=== PATIENT | male | born 2000 | race Caucasian/White ===

== ENCOUNTER 2019-09-04 13:09 | Emergency (ER) | payer BC, SELFPAY ==
[2019-09-04 13:12] VITALS: BP 142/87; PULSE 66; RESP 20; TEMP 36.6; O2SAT 99
--- NOTE | 2019-09-04 13:46 | ED.GENADUL_ITS ---
Discharge Plan Disposition Patient Disposition: HOME Condition: Stable Discharge Details Chief Complaint: Nk/Back Pain Clinical Impression: Right sided sciatica Primary Care Provider: None,None ED Provider: Juanjose Christie Home Meds and New Rx's Prescriptions: New prednisone 20 mg tablet 40 mg PO DAILY 5 Days Qty: 10 RF: 0 Discharge Instructions Instructions: Sciatica (ED) Additional Instructions: Apply ice and/or heat to area to reduce discomfort Take prednisone as prescribed. May continue the use of ibuprofen and/or Tylenol if needed for discomfort. Return to the ER if you have increasing pain, develop numbness or weakness of the lower extremity, change to urination, or any other acute concerns. Medical Decision Making 19-year-old male with a history of sciatica presents for recurrent right buttock pain that radiates down his leg. Worsened after traveling back to his local college. No motor or sensory dysfunction, reflexes are intact and symmetric. Consistent with acute right-sided sciatica. Will treat with a burst of prednisone, ongoing analgesia, patient states he has pre-standing plans for physical therapy follow- up. Discussed with him return precautions to the ED. HPI General Mode of arrival: ambulatory . Date/Time Provider Initiated Documentation: 09/04/19 13:36 . Limitations to Documentation: no limitations . Information obtained by: patient . History of Present Illness 19 year old M presents to the emergency department with the chief complaint of Right buttock and leg pain, described as similar to prior episodes, Quality is described as constant, and is localized to the right and lower extremity. Patient reports no radiation. Patient started experiencing this day(s) and it has been constant. Rest improves symptom(s), Other factors that worsen symptoms (Worse with prolonged sitting) . Patient notes other (No change to bowel or bladder habits, no numbness or tingling, no weakness.). Patient did receive the following treatments prior to arrival, NSAID Related Data Home Medications Medication Instructions Recorded Confirmed prednisone 40 mg PO DAILY 5 Days #10 tab 09/04/19 Previous Rx's Medication Instructions Recorded prednisone 40 mg PO DAILY 5 Days #10 tab 09/04/19 Allergies Allergy/AdvReac Type Severity Reaction Status Date / Time No Known Allergies Allergy Unverified 09/04/19 13:16 General Stated Complaint: Nk/Back Pain AMARILIS: 4 Review of Systems Narrative: 6 systems reviewed and otherwise negative, see HPI PFS Social History Smoking/Tobacco Use Status: Current every day Substance use type: marijuana Do you feel safe at home: Yes Do you feel safe in your relationship?: Yes Exam Narrative Exam Narrative: GEN: awake, alert, oriented 3. Pleasant, well groomed, interactive. HEAD: Normocephalic, atraumatic ENT: Mucous membranes moist, oropharynx unremarkable, External ear exam unremarkable EYES: PERRL, EOMI NECK: Full ROM, no CARIN, no menigismus CHEST/RESP: Nontender, clear to auscultation bilateral, no wheeze/rhonchi/rales CARDIOVASCULAR: RRR, no murmur, rub kanu. 2+ Rad pulse bilateral EXT: Full ROM, no edema, no rash. No saddle anesthesia. Motor 5 out of 5. 2+ patellar reflex bilaterally. Great toe proprioception intact. Sensation intact throughout Neuro: Grossly normal neurologic exam, conversant, interactive. Psych: Speech fluent, thoughts congruent, affect normal Course Vital Signs Vital signs: Vital Signs Temperature 36.6 C 09/04/19 13:12 Pulse 66 09/04/19 13:12 Respiratory Rate 20 09/04/19 13:12 Blood Pressure 142/87 H 09/04/19 13:12 Pulse Oximetry 99 09/04/19 13:12 Temperature 36.6 C 09/04/19 13:12 Temperature Source Skin 09/04/19 13:12 Pulse 66 09/04/19 13:12 Respiratory Rate 20 09/04/19 13:12 Respiratory Effort 09/04/19 13:16 Blood Pressure 142/87 H 09/04/19 13:12 Blood Pressure Position Sitting 09/04/19 13:12 Pulse Oximetry 99 09/04/19 13:12 Oxygen Delivery Method Room Air 09/04/19 13:12 Oxygen Flow Rate 0 09/04/19 13:12 Pain Level 8 09/04/19 13:12
[2019-09-04] MEDS: predniSONE 20 MG TAB 60 MG PO (14:01)
== END 2019-09-04 14:08 | disposition home or self-care (01) ==
LOC: ER 14:04
PROVIDERS: Emergency Provider Emergency Medicine
DX: M54.41 Lumbago with sciatica, right side (principal)
CPT/HCPCS: 99283; J7512

== ENCOUNTER 2022-02-01 10:46 | Emergency (ER) | payer BC, SELFPAY ==
[2022-02-01 10:56] VITALS: BP 146/78; PULSE 76; RESP 16; TEMP 37.4; O2SAT 97
--- NOTE | 2022-02-01 11:37 | ED.GENADUL_ITS ---
Discharge Plan Disposition Patient Disposition: HOME Condition: Stable Discharge Details Clinical Impression: Cough Primary Care Provider: None,None ED Provider: Tito Bucio Home Meds and New Rx's Prescriptions: Continued Cary .EVERY OTHER WEEK 0RF Discharge Instructions Instructions: Acute Cough (ED) Additional Instructions: Chest x-ray is negative. No clear indication for antibiotic therapy. Covid test is pending, I recommend that you quarantine until the test has resulted negative hopefully in the next 2 days. Please stop vaping. Ukui-zeb-[id number] medications as directed for symptomatic control. Please watch for new or worsening symptoms and return to the ER for any concerns Medical Decision Making 22-year-old gentleman, vapes daily, reports fully vaccinated against COVID with his booster, reports having had Covid roughly 5 weeks ago, full recovery, now with cough over the past 7 days. Reports primarily dry, occasional wheezing, denies any sick contacts. He has taken 2 - home Covid test over the past few days. Clinically he appears well, nontoxic, O2 sat 97% on room air. Lungs are clear to auscultation. Plan is to obtain a chest x-ray to rule out pneumonia as well as a Covid PCR swab. No indication for additional laboratory values or breathing treatment. Chest x-ray negative Discussed benign chest x-ray with patient, Covid test pending and quarantining until it has resulted negative. We discussed the importance of qsel-yse-[id number] medications for symptomatic control. Patient has no additional questions or concerns and is comfortable discharge. Standard discharge and return precautions were provided This documentation was generated using [employer] dictation system, please disregard any oddities of phrase or misspellings. Medical Records Medical records reviewed: Yes I reviewed the patient's medical records. Imaging Data Radiologic Study: Attestation: I personally reviewed and interpreted this imaging study as follows: Imaging: X-Ray Radiologist's impression: Exam(s) XR PORTABLE CHEST AP EXAM: XR PORTABLE CHEST AP CLINICAL HISTORY: cough TECHNIQUE: 2D digital imaging was performed of the chest. One image was obtained. An AP view was obtained. COMPARISON: No exams were available for comparison FINDINGS: MEDIASTINUM: Normal. HEART: Normal. PULMONARY VASCULATURE: Normal. LUNGS: Mild peribronchial thickening seen in the left hilum. PLEURAL SPACE: No pleural effusion or pneumothorax. BONE:Within normal limits for the patient's age. OTHER FINDINGS:Normal. IMPRESSION: Mild peribronchial cuffing in the left hilum. This may reflect small airways disease such as bronchiolitis or asthma. Lab Data Labs: covid pending HPI General Mode of arrival: ambulatory . Date/Time Provider Initiated Documentation: 02/01/22 11:01 . Limitations to Documentation: no limitations . Information obtained by: patient . History of Present Illness 22 year old M presents to the emergency department with the chief complaint of cough, described as mild, with intensity rated at 3. Quality is described as other (cough, no pain), and is localized to the chest. Patient reports no radiation. Patient started experiencing this day(s) (7) and it has been constant. improves with No relieving factors improve symptom(s), No exacerbating factors reported . Patient notes cough; denies fever/chills, headaches, nausea/vomiting and rash. Patient did receive the following treatments prior to arrival, none Related Data Home Medications Medication Instructions Recorded Confirmed Cary .EVERY OTHER WEEK 02/01/22 Allergies Allergy/AdvReac Type Severity Reaction Status Date / Time No Known Allergies Allergy Unverified 02/01/22 11:01 General Stated Complaint: RespSymp AMARILIS: 4 Review of Systems Constitutional Constitutional: Denies fever(s) Cardiovascular Cardiovascular: Denies chest pain and Denies dyspnea Respiratory Respiratory: Reports cough, Denies dyspnea and Reports wheezing (at times, none now) Gastrointestinal Gastrointestinal: Denies abdominal pain, Denies nausea and Denies vomiting Integumentary/Breasts Skin/Breast: Denies rash Allergic/Immunologic Allergic/Immunologic: Reports wheezing (at times, none now) PFSH All Active Problems (Updated 02/01/22 @ 12:12 by ALEXSANDER Rajan) Cough (Acute) Social History Smoking/Tobacco Use Status: Current every day Tobacco Type: e-cigarettes Smoking risk assessment performed?: Yes Substance use type: former substance user and marijuana Do you feel safe at home: Yes Do you feel safe in your relationship?: Yes Exam Const General: cooperative, healthy appearing, comfortable and no acute distress Orientation: alert and awake HENMT Head: normal to inspection, normocephalic and atraumatic Ears: external ears normal, TM's normal bilaterally and EAC's normal Face and sinus: normal facial exam Mouth: moist mucous membranes Throat: posterior oropharynx normal Eyes General: appearance normal, both eyes and all related structures Conjunctivae: conjunctivae normal Neck Neck: normal visual inspection, full ROM, no meningeal signs, trachea midline and supple Resp Effort & Inspection: normal respiratory effort, able to speak in complete sentences and cough Quality of cough: dry (mild) Auscultation: clear to auscultation bilaterally Cardio Rate: regular rate Rhythm: regular rhythm GI Palpation: soft and nontender Back/Spine/Pelvis Back: No back tenderness Skin General skin exam: no rashes or lesions noted Neuro General: patient alert, patient awake, moves all extremities and no focal motor deficits Sensory Exam: no sensory deficits noted Psych Appearance: grossly normal Mental Status: mental status grossly normal Course Vital Signs Vital signs: Vital Signs Temperature 37.4 C 02/01/22 10:56 Pulse 76 02/01/22 10:56 Respiratory Rate 16 02/01/22 10:56 Blood Pressure 146/78 H 02/01/22 10:56 Pulse Oximetry 97 02/01/22 10:56 Temperature 37.4 C 02/01/22 10:56 Temperature Source Skin 02/01/22 10:56 Pulse 76 02/01/22 10:56 Respiratory Rate 16 02/01/22 10:56 Respiratory Effort 02/01/22 11:03 Respiratory Depth Normal 02/01/22 11:03 Blood Pressure 146/78 H 02/01/22 10:56 Blood Pressure Position Sitting 02/01/22 10:56 Pulse Oximetry 97 02/01/22 10:56 Oxygen Delivery Method Room Air 02/01/22 10:56 Oxygen Flow Rate 0 02/01/22 10:56 Pain Level 2 02/01/22 10:56 Comment 02/01/22 10:56 PAWSS Have you Been Recently Intoxicated or Drunk Within the Last 30 days?: Yes Have you Ever Experienced Previous Episodes of Alcohol Withdrawal?: No Have you ever Experienced Withdrawal Seizures?: No Have you ever Experienced Delirium Tremens(DT)s?: No Have you ever undergone Alcohol Rehabilitation Treatment (i.e, inpt ot outpatient treatment programs)?: No Have you ever Experienced Blackouts?: Yes Have you ever Combined Alcohol with other Downers within the last 90 days?: No Have you ever Combined Alcohol with any other Substance of Abuse during the last 90 days?: No Positive Blood Alcohol level on Presentation? [PCS.BAL]: No Evidence of Increased Autonomic Activity (i.e. HR>120, tremor, sweating, agitation, nausea)?: No Result: 2
--- NOTE | 2022-02-01 11:48 | DI.RAD_ITS ---
Exam(s) XR PORTABLE CHEST AP EXAM: XR PORTABLE CHEST AP CLINICAL HISTORY: cough TECHNIQUE: 2D digital imaging was performed of the chest. One image was obtained. An AP view was ob tained. COMPARISON: No exams were available for comparison FINDINGS: MEDIASTINUM: Normal. HEART: Normal. PULMONARY VASCULATURE: Normal. LUNGS: Mild peribronchial thickening seen in the left hilum. PLEURAL SPACE: No pleural effusion or pneumothorax. BONE:Within normal limits for the patient's age. OTHER FINDINGS:Normal. IMPRESSION: Mild peribronchial cuffing in the left hilum. This may reflect small airways disease such as bronchi olitis or asthma. DATA REPOSITORY: RADIATION DOSE DELIVERED:
[2022-02-02 11:31] LABS: COVID-19 RT-PCR UVMMC Result Negative (Negative)
== END 2022-02-01 12:25 | disposition home or self-care (01) ==
PROVIDERS: Emergency Provider Physician Assistant
DX: R05.9 Cough, unspecified (principal); F17.290 Nicotine dependence, other tobacco product, uncomplicated; Z86.16 Personal history of COVID-19; Z20.822 Contact with and (suspected) exposure to COVID-19
CPT/HCPCS: 99283; U0003; 71045

== ENCOUNTER 2022-02-13 15:39 | Emergency (ER) | payer BC, SELFPAY ==
[2022-02-13 15:44] VITALS: BP 121/73; PULSE 82; RESP 18; TEMP 37.2; O2SAT 98
--- NOTE | 2022-02-13 15:47 | ED.GENADUL_ITS ---
Discharge Plan Disposition Patient Disposition: HOME Condition: Stable Discharge Details Clinical Impression: Chronic cough Primary Care Provider: Lucy,Local ED Provider: Mei Beltre Home Meds and New Rx's Prescriptions: New amoxicillin-pot clavulanate 875-125 mg tablet 1 tab PO BID 7 Days Qty: 14 0RF prednisone 20 mg tablet See Rx Instructions .ROUTE .COMPLEX Qty: 12 0RF Rx Instructions: Take 3 tabs daily for 2 days, then 2 tabs daily for 2 days, then 1 tab daily for 2 days benzonatate 100 mg capsule 100 mg PO TID PRN (Reason: cough) Qty: 10 0RF Continued [place] .EVERY OTHER WEEK 0RF Discharge Instructions Additional Instructions: Your COVID test today is negative. Your chest x-ray was read today as negative for acute disease. Drink plenty of fluids and get plenty of rest. You are being sent home with prescriptions for steroids, cough medication and antibiotic. Start your steroid prescription tomorrow. If you have no relief or worsening of symptoms in the next 2 days, you can try taking the antibiotics. Use the albuterol inhaler as needed and directed for shortness of breath. Take the cough medication as needed and directed for coughing. Follow-up with your primary care doctor in 1 week for reevaluation and for referral to allergy and immunology or pulmonology if your cough does not improve or worsens. Return to the emergency department with any worsening or new concerning symptoms. Referrals: Vicky Dunlap MD [ [facility] STAFF PHYSICIAN] - Washington Matias MD [ [facility] STAFF PHYSICIAN] - Discharge Data Discharge Physician: Mei Beltre Medical Decision Making 21-year-old male with a history of ankylosing spondylitis on chronic immunosuppressants presents for persistent productive cough for the past 4 weeks. Patient seen here 2 weeks ago for similar symptoms and had a chest X-ray which noted Mild peribronchial cuffing in the left hilum.? This may reflect small airways disease such as bronchiolitis or asthma.? Vitals within normal limits. Patient appears comfortable and nontoxic. He is frequently coughing throughout exam. His lungs are otherwise clear without wheezing, rhonchi or rales. Normal ENT exam. Differential diagnosis includes bronchitis, long COVID, post-COVID illness, pneumonia, allergies, GERD. History and presentation does not appear consistent with PE, dissection or ACS. We will give a DuoNeb and oral steroids for cough. Patient drove himself here so we wi ll hold on narcotic cough medication. Will obtain a COVID and repeat chest xray. COVID negative. Chest x-ray read as negative. There appeared to be possible increased markings in the right lung base. No wheezing noted on reassessment of lung exam post neb. Considering patient's complaint of productive cough, will send with a prescription for steroids, cough medication and antibiotics. Patie nt denies any significant relief with duo nebs and steroids here. We will send with Reynaldodilma with codeine. Also discussed with patient that his symptoms could be secondary to allergies or GERD. Advised to follow up with the primary care doctor for re-evaluation. Usual and customary return precautions given prior to discharge. Medical Records Medical records reviewed: Yes I reviewed the patient's medical records. Medical records narrative: 02/01/22 XR PORTABLE CHEST AP CLINICAL HISTORY:? cough TECHNIQUE:? 2D digital imaging was performed of the chest. One image was obtained.? An AP view was obtained. COMPARISON:? No exams were available for comparison FINDINGS: MEDIASTINUM: Normal.? HEART: Normal. PULMONARY VASCULATURE: Normal. LUNGS: Mild peribronchial thickening seen in the left hilum. ? PLEURAL SPACE: No pleural effusion or pneumothorax. BONE:Within normal limits for the patient's age. OTHER FINDINGS:Normal.? IMPRESSION: Mild peribronchial cuffing in the left hilum.? This may reflect small airways disease such as bronchiolitis or asthma.? Imaging Data Radiologic Study: Radiologist's impression: XR Chest Exam date and time: 02/13/2022 4:07 PM Age: 22 years old Clinical indication: Other: Cough, SOB, R/O acute disease TECHNIQUE: Imaging protocol: XR of the chest. Views: 1 view. Total images: 2 COMPARISON: CR XR PORTABLE CHEST AP 02/01/2022 11:29 AM FINDINGS: Lungs: Unremarkable. No consolidation. Pleural spaces: No pleural effusion. No pneumothorax. Heart/Mediastinum: Heart size is normal for technique. Bones/joints: No acute bone abnormality. IMPRESSION: No acute findings. Lab Data Lab results reviewed: Yes I reviewed the patient's lab results. Labs: Laboratory Tests Range/Units 02/13/22 16:20 COVID-19 Source Nasal/Nares SARS-CoV-2 (PCR) (Negative) Negative HPI General Mode of arrival: ambulatory . Date/Time Provider Initiated Documentation: 02/13/22 15:40 . Limitations to Documentation: no limitations . Information obtained by: patient . HPI Narrative: Patient is a 22-year-old male with a history of ankylosing spondylitis chronically on immunosuppressants who presents for persistent cough for the past 4 weeks. Patient states he is fully vaccinated for COVID but did contract COVID in November 2021. He states his symptoms are mainly fever and headache and denies any cough or shortness of breath at that time. He states his cough has been present for the past 4-week, productive of white and yellow sputum and associated with shortness of breath that is usually worse when laying down. He does admit to sore throat with coughing. He denies any fever, ear pain, chest pain, vomiting or diarrhea. He states he has taken doqg-zln-ukpsrpw cough medication. He was seen in the ER 2 weeks ago for the same complaint and had a chest x-ray which was negative for pneumonia. Related Data Home Medications Medication Instructions Recorded Confirmed [place] .EVERY OTHER WEEK 02/01/22 amoxicillin 875 mg-potassium 1 tab PO BID 7 Days #14 tab 02/13/22 clavulanate 125 mg tablet benzonatate 100 mg capsule 100 mg PO TID PRN #10 cap 02/13/22 prednisone 20 mg tablet See Rx Instructions .ROUTE 02/13/22 .COMPLEX #12 tab Previous Rx's Medication Instructions Recorded amoxicillin 875 mg-potassium 1 tab PO BID 7 Days #14 tab 02/13/22 clavulanate 125 mg tablet benzonatate 100 mg capsule 100 mg PO TID PRN #10 cap 02/13/22 prednisone 20 mg tablet See Rx Instructions .ROUTE 02/13/22 .COMPLEX #12 tab Allergies Allergy/AdvReac Type Severity Reaction Status Date / Time No Known Allergies Allergy Unverified 02/13/22 15:47 General Stated Complaint: RespSymp AMARILIS: 3 Review of Systems All systems reviewed & are unremarkable except as noted in HPI and below Constitutional Constitutional: Denies chills, Denies excessive sweating, Denies fatigue, Denies fever(s), Denies weakness and Denies weight loss Eyes Eyes: Reports system reviewed and no additional complaints, except as documented and Denies blurry vision ENT Ears, Nose, Mouth, and Throat: Denies vertigo, Denies dizziness, Denies otalgia, Denies nasal congestion, Denies sore throat and Denies throat swelling Cardiovascular Cardiovascular: Denies chest pain, Denies syncope, Denies rapid heart rate and Reports dyspnea Respiratory Respiratory: Reports chest congestion, Reports cough, Denies pain on inspiration and Reports dyspnea Gastrointestinal Gastrointestinal: Denies abdominal pain, Denies diarrhea and Denies vomiting Genitourinary Genitourinary: Denies hematuria, Denies dysuria and Denies flank pain Musculoskeletal Musculoskeletal: Denies back pain and Denies joint swelling Integumentary/Breasts Skin/Breast: Denies lesions and Denies rash Neurologic Neurologic: Denies behavioral changes, Denies confusion, Denies vertigo, Denies dizziness, Denies syncope, Denies localized weakness and Denies weakness Psychiatric Psychiatric: Denies behavioral changes, Denies confusion and Denies depression Endocrine Endocrine: Denies excessive sweating and Denies fatigue Hematologic/Lymphatic Hematologic/Lymphatic: Denies easy bruising and Denies lymphadenopathy Allergic/Immunologic Allergic/Immunologic: Denies throat swelling PFSH All Active Problems (Updated 02/13/22 @ 17:28 by Mei Beltre DO) Chronic cough (Acute) Cough (Acute) Medical History (Updated 02/13/22 @ 17:28 by Mei Beltre DO) Ankylosing spondylitis Surgical History (Updated 02/13/22 @ 17:18 by Mei Beltre DO) History of hip surgery bilateral Social History Smoking/Tobacco Use Status: Current every day Tobacco Type: e-cigarettes Smoking risk assessment performed?: Yes Substance use type: former substance user and marijuana Do you feel safe at home: Yes Do you feel safe in your relationship?: Yes Exam Const General: cooperative and no acute distress Orientation: alert, awake and oriented x3 HENMT Head: normal to inspection Ears: hearing grossly normal bilaterally, external ears normal and TM's normal bilaterally General nose exam: external nose normal Face and sinus: normal facial exam Mouth: oral mucosae normal Teeth and gingiva: dentition normal Throat: posterior oropharynx normal Eyes General: appearance normal, both eyes and all related structures Eyelids: eyelids normal Pupils: PERRL EOM: EOM intact bilaterally Neck Neck: normal visual inspection Lymphatic: no lymphadenopathy noted Chest Chest: normal inspection of the chest Resp Effort & Inspection: normal respiratory effort and able to speak in complete sentences Auscultation: clear to auscultation bilaterally Cardio Rate: regular rate Rhythm: regular rhythm GI Inspection: normal to inspection Palpation: soft, not firm, no guarding, no hepatosplenomegaly, no masses and nontender Auscultation: normal bowel sounds Back/Spine/Pelvis Back: no CVA tenderness Skin General skin exam: no rashes or lesions noted Neuro General: patient alert and patient awake Cognition: normal cognition Speech: speech normal Gait: normal gait Motor: muscle tone normal throughout Sensory Exam: no sensory deficits noted Extrem General: normal to inspection, full ROM and capillary refill normal Psych Appearance: grossly normal Mental Status: mental status grossly normal Speech and Movement: speech and movement normal Affect: normal affect Thought Process: normal Course Vital Signs Vital signs: Vital Signs Temperature 99.0 F 02/13/22 15:44 Pulse 82 02/13/22 15:44 Respiratory Rate 18 02/13/22 15:44 Blood Pressure 121/73 02/13/22 15:44 Pulse Oximetry 98 02/13/22 15:44 Temperature 99.0 F 02/13/22 15:44 Temperature Source Temporal Artery Scan 02/13/22 15:44 Pulse 82 02/13/22 15:44 Respiratory Rate 18 02/13/22 15:44 Blood Pressure 121/73 02/13/22 15:44 Blood Pressure Position Sitting 02/13/22 15:44 Pulse Oximetry 98 02/13/22 15:44 Oxygen Delivery Method Room Air 02/13/22 15:44 Oxygen Flow Rate 0 02/13/22 15:44
--- NOTE | 2022-02-13 16:00 | DI.RAD_ITS ---
Exam(s) XR PORTABLE CHEST AP EXAM: XR PORTABLE CHEST AP CLINICAL HISTORY: cough, sob, r/o acute disease TECHNIQUE: 2D digital imaging was performed of the chest. Two images were obtained. AP views were obtained. COMPARISON: No exams were available for comparison FINDINGS: MEDIASTINUM: Normal. HEART: Normal. PULMONARY VASCULATURE: Normal. LUNGS: Clear. PLEURAL SPACE: No pleural effusion or pneumothorax. BONE:Within normal limits for the patient's age. OTHER FINDINGS:Normal. IMPRESSION: No acute pulmonary findings. DATA REPOSITORY: RADIATION DOSE DELIVERED:
--- OUTSIDE RECORDS SUMMARY | 2022-02-13 16:07 | XMS_ITS | Clinical Summary ---
:2000 Author Organization [facility] Address [phone] [facility] [place] [address] Care Team Providers Name Role Phone CharmaineerKareem MD Primary Care Provider Allergies No known active allergies Medications No known medications Active Problems Problem Noted Date Spondyloarthropathy 05/06/2020 Sciatica of right side 05/05/2020 Immunizations Name Administration Dates Next Due DTaP, unspecified formulation 07/27/2000, 1999, 1998, 1999 Hepatitis B, unspecified formulation 1999, 1999, 1999 Hib, unspecified formulation 05/15/2000, 1999, 999, 1999 MMR 05/15/2000 Pneumococcal conjugate, PCV 7 05/15/2000, 02/08/2000 Polio, Unspecified Formulation 1999, 1999, 03/16 Varicella 02/08/2000 Social History Tobacco Use Types Packs/Day Years Used Date Never Assessed Sex Assigned at Date Recorded Male 04/27/2020 12:17 PM EDT Last Filed Vital Signs Vital Sign Reading Time Taken Comments Blood Pressure - - Pulse - - Temperature - - Respiratory Rate - - Oxygen Saturation - - Inhaled Oxygen Concentration - - Weight 81.6 kg (180 lb) 05/05/2020 8:30 AM EDT Height 177.8 cm (5' 10) 05/05/2020 8:30 AM EDT Body Mass Index 25.83 05/05/2020 8:30 AM EDT Plan of Treatment Health Maintenance Due Date Last Done Comments Adult Td,Tdap Booster 1999 COVID-19 VACCINE (1) 01/23/2004 SMOKING Hx and SMOKELESS 01/23/2012 TOBACCO SCREENING DEPRESSION SCREENING 2017 HIV ONE-TIME SCREENING 2017 (18-65 YEARS) INFLUENZA VACCINE (#1) 2021 08/02/2018, 10/05/2017, 07/19/2016, Additional history exists HIB VACCINES Completed 05/15/2000, 1999, 1999, Additional history exists PNEUMOCOCCAL VACCINES (0-64 Aged Out 05/15/2000, 02/08/20 00 No longer eligible years) based on patient 's age to complete this topic HEPATITIS C SCREENING Completed 04/28/2020 MENINGOCOCCAL VACCINES Aged Out No longer eligible (ACWY) based on patient 's age to complete this topic Medical Devices Not on file Insurance Payer Benefit Plan / Subscriber ID Effective Dates Phone Addre ss Type Group BLUE CROSS BLUE CROSS OUT [id number] 2018-[facility] [phone] [address] PPO [facility] PPO t [address] [place] [address] [phone] (Work) Claudio Jett Personal/Family Self [address] (Home) [place], [place] [phone] (Work) Claudio Jett Personal/Family Self [address] (Home) [place], [place] [phone] (Work) Claudio Jett Personal/Family Self [address] (Home) [place], [place] [phone] (Work) Claudio Jett Personal/Family Self [address] (Home) [place], [place] [phone] (Work) Claudio Jett Personal/Family Self [address] (Home) [place], [place] [phone] (Work) [employer] R Personal/Family Self [address] (Home) [place], [place] [phone] (Work) Claudio Jett Personal/Family Self [address] (Home) [place], [place] [phone] (Work) Claudio Jett Personal/Family Self 2000 [address] [facility] (Home) [place], [place] [phone] (Work) Care Teams Ball Truing Machine Operator Relationship Specialty Start Date End Date Kem Henry MD PCP - General Pediatric Medicine 04/27/20 Additional Source Comments The information contained in this document represents components of the legal health record. It is not the complete legal health record.[facility]
--- OUTSIDE RECORDS SUMMARY | 2022-02-13 16:07 | XMS_ITS | Encounter Summary ---
:2000 Author Organization [facility] Address [phone] [facility] [place] [address] Care Team Providers Name Role Phone Kareem Henry MD Primary Care Provider Encounter Details Date Type Department Care Team Description 02/15/2021 Orders Only [facility] Vaccine Scheduling, Mgb Enc ounter for [facility] Bulk Ordering User immunization [address] To Enable Vaccine [address] [place] [address] Social History Tobacco Use Types Packs/Day Years Used Date Never Assessed Sex Assigned at Date Recorded Male 04/27/2020 12:17 PM EDT documented as of this encounter Plan of Treatment Not on filedocumented as of this encounter Visit Diagnoses Diagnosis Encounter for immunization documented in this encounter Care Teams Scanning Supervisor Relationship Specialty Start Date End Date Kem Henry MD PCP - General Pediatric Medicine 04/27/20 documented as of this encounter Additional Source Comments The information contained in this document represents components of the legal health record. It is not the complete legal health record.[facility]
--- OUTSIDE RECORDS SUMMARY | 2022-02-13 16:08 | XMS_ITS | Encounter Summary ---
:2000 Author Organization [facility] Address [phone] [facility] [place] [address] Care Team Providers Name Role Phone CharmaineerKareem MD Primary Care Provider Encounter Details Date Type Department Care Team Description 04/30/2020 Hospital Encounter [facility] Catarino Caraballo MD, [address] [place] [id number] [place] [address] [address] [place] [address] (Wo rk) [phone] (Fa x) Social History Tobacco Use Types Packs/Day Years Used Date Never Assessed Sex Assigned at Date Recorded Male 04/27/2020 12:17 PM EDT documented as of this encounter Plan of Treatment Not on filedocumented as of this encounter Procedures Procedure Name Priority Date/Time Associated Diagnosis Comme nts MRI LOWER EXTREMITY Routine 04/30/2020 12:00 AM R esults for this OUTSIDE (NO EDT procedure are i n INTERPRETATION) the results section. documented in this encounter Results MRI Lower Extremity Outside (No Interpretation) (04/30/2020 12:00 AM EDT) Specimen (Source) Anatomical Location Collection Method / Collectio n Time Received Time / Laterality Volume Narrative [facility] IMG INTERFACES - 05/05/2020 8:29 AM EDT This study is for PACS storage only and not for interpretation. Catarino Caraballo MD, PhD IMG OUTSIDE IMAGING W/OUT IN TERPRETATION Performing Organization Address City/State/ZIP Code Phon e Number [facility] IMG INTERFACES documented in this encounter Visit Diagnoses Not on filedocumented in this encounter Care Teams Automobile Inspector Relationship Specialty Start Date End Date Kem Henry MD PCP - General Pediatric Medicine 04/27/20 documented as of this encounter Additional Source Comments The information contained in this document represents components of the legal health record. It is not the complete legal health record.[facility]
--- OUTSIDE RECORDS SUMMARY | 2022-02-13 16:08 | XMS_ITS | Encounter Summary ---
:2000 Author Organization [facility] Address [phone] [facility] [place] [address] Care Team Providers Name Role Phone Unavailable Primary Care Provider Unavailable Encounter Details Date Type Department Care Team Description 04/07/2020 Hospital Encounter [facility] Catarino Caraballo MD, [address] [place], [place] [id number] [place] [address] [address] [place] [address] (Wo rk) [phone] (Fa x) [email or web address] Social History Tobacco Use Types Packs/Day Years Used Date Never Assessed Sex Assigned at Date Recorded Male 04/27/2020 12:17 PM EDT documented as of this encounter Plan of Treatment Not on filedocumented as of this encounter Procedures Procedure Name Priority Date/Time Associated Diagnosis Comme nts MRI LOWER EXTREMITY Routine 04/07/2020 12:05 AM R esults for this OUTSIDE (NO EDT procedure are i n INTERPRETATION) the results section. documented in this encounter Results MRI Lower Extremity Outside (No Interpretation) (04/07/2020 12:05 AM EDT) Specimen (Source) Anatomical Location Collection Method / Collectio n Time Received Time / Laterality Volume Narrative [facility] IMG INTERFACES - 05/05/2020 8:15 AM EDT This study is for PACS storage only and not for interpretation. Catarino Caraballo MD, PhD IMG OUTSIDE IMAGING W/OUT IN TERPRETATION Performing Organization Address City/State/ZIP Code Phon e Number [facility] IMG INTERFACES documented in this encounter Visit Diagnoses Not on filedocumented in this encounter Additional Source Comments The information contained in this document represents components of the legal health record. It is not the complete legal health record.[facility]
--- OUTSIDE RECORDS SUMMARY | 2022-02-13 16:08 | XMS_ITS | Encounter Summary ---
:2000 Author Organization [facility] Address [phone] [facility] [place] [address] Care Team Providers Name Role Phone Kareem Henry MD Primary Care Provider Encounter Details Date Type Department Care Team Description 04/07/2020 Ancillary Orders [facility] Catarino Caraballo MD, [address] [place] [address] [address] [place] [address] (Wo rk) [phone] (Fa x) Social History Tobacco Use Types Packs/Day Years Used Date Never Assessed Sex Assigned at Date Recorded Male 04/27/2020 12:17 PM EDT documented as of this encounter Plan of Treatment Not on filedocumented as of this encounter Results MRI Lower Extremity Outside (No Interpretation) (04/07/2020 12:05 AM EDT) Specimen (Source) Anatomical Location Collection Method / Collectio n Time Received Time / Laterality Volume Narrative [facility] IMG INTERFACES - 05/05/2020 8:15 AM EDT This study is for PACS storage only and not for interpretation. Catarino Caraballo MD, PhD IMG OUTSIDE IMAGING W/OUT IN TERPRETATION Performing Organization Address City/State/ZIP Code Phon e Number [facility] IMG INTERFACES documented in this encounter Visit Diagnoses Not on filedocumented in this encounter Care Teams Track Service Worker Relationship Specialty Start Date End Date Kem Henry MD PCP - General Pediatric Medicine 04/27/20 documented as of this encounter Additional Source Comments The information contained in this document represents components of the legal health record. It is not the complete legal health record.[facility]
--- OUTSIDE RECORDS SUMMARY | 2022-02-13 16:08 | XMS_ITS | Encounter Summary ---
:2000 Author Organization [facility] Address [phone] [facility] [place] [address] Care Team Providers Name Role Phone CharmaineerKareem MD Primary Care Provider Reason for Visit Reason Comments New Evaluation LBP /R LEG PAIN Encounter Details Date Type Department Care Team Description 05/05/2020 Office Visit [facility] Catarino Davis, Sciatica of ri ght side (Primary Dx); Orthopaedics , PhD Spondyloarthropathy [address] [place] [address] [address] [place] [address] [email or web address] Social History Tobacco Use Types Packs/Day Years Used Date Never Assessed Sex Assigned at Date Recorded Male 04/27/2020 12:17 PM EDT documented as of this encounter Last Filed Vital Signs Vital Sign Reading Time Taken Comments Blood Pressure - - Pulse - - Temperature - - Respiratory Rate - - Oxygen Saturation - - Inhaled Oxygen Concentration - - Weight 81.6 kg (180 lb) 05/05/2020 8:30 AM EDT Height 177.8 cm (5' 10) 05/05/2020 8:30 AM EDT Body Mass Index 25.83 05/05/2020 8:30 AM EDT documented in this encounter Progress Notes Catarino Caraballo MD, PhD - 05/05/2020 8:15 AM EDT Claudio Jett : 2000 Date of Visit: 05/05/2020 Reason for Visit (Summary/Chief Complaint): 20 y.o. male presents for a new problem. History, Assessment, and Plans By Problem: Patient is accompanied by no one. 1. Sciatica of right side (Primary) - MRI Lumbar Spine 2. Spondyloarthropathy ?Patient is a 20 y.o. male who presented and stated that the problem started without an antecedent event, many years ago. The main symptom was tingling with pain and was sharp was persistent and with radiation to the right leg. Pain level was 9. Treatments have included injections. The symptom(s) have unchanged, would improve with resting and would worsen with walking, sitting andarising from a sitting position, with wake up and with nighttime pain. Patient denied bladder or bowel symptoms and denied childhood back or hip problems. He brought in outside MRI of the pelvis and the hips that showed edema of the SI joints mostly. By report, he also has slipped discs but he did not bring the images. Plan: ??? Steroid taper did help the pain. His sxs are most c/w spondyloarthropathy given the abnormal MRIpelvis findings. ??? Continue f/u with rheumatology team ??? If R sciatica persists, MRI L spine. Order saved. He can all to set it up. ??? F/U after MRI if done. Orders placed during visit and Plans for follow up: No medication orders Orders Placed This Encounter Procedures ??? MRI Lumbar Spine Return if symptoms worsen or fail to improve, for Review after MRI/CT if done. History reviewed. No pertinent past medical history. History reviewed. No pertinent surgical history. No Known Allergies No current outpatient medications on file prior to visit. No current facility-administered medications on file prior to visit. History reviewed. No pertinent family history. Social History Tobacco Use ??? Smoking status: Not on file Substance Use Topics ??? Alcohol use: Not on file ??? Drug use: Not on file Ht 177.8 cm (5' 10) Wt 81.6 kg (180 lb) BMI 25.83 kg/m?? There were no vitals filed for this visit. Review of Systems Musculoskeletal: Positive for back pain and gait problem. All other systems reviewed and are negative. Physical Examination: Constitutional: Sitting upright in no apparent discomfort, no acute distress. Well groomed in appearance and well nourished. Mental Status: Alert and oriented x3. In good spirits and mood. Neuro: Grossly normal cognition, and cranial nerves III to XII. Cardiovascular: Distal pulses are intact with good distal capillary refill. Lymphatic: No cervical, axillary or inguinal lymphadenopathy. Gait: bilateral antalgic gait without difficulty in toe walking and heel walking. ? HEENT: Normocephalic and atraumatic head with pupils round and equal. Extraocular movements intact. Neck: Full range of motion on flexion, extension, lateral bending and lateral rotation with no step-off and with no pain on palpation of the posterior elements. Motor and sensory exams are normal. Skinis intact. Abdomen: Soft, non-tender, non-distended, no hepatosplenomegaly and no masses. No rebound tenderness. Normal superficial abdominal reflexes. Musculoskeletal: Upper extremities: Full range of motion of the shoulders, elbows, wrists and forearms bilaterally. No obvious deformities or tenderness or instability. No crepitus. Lower extremities: Hips: Full ROM with flexion and extension, symmetric internal and external rotation without pain bilaterally. Symmetric hip abduction bilaterally. + DARYA bilateral. Knees: Full range of motion on flexion and extension with no effusions and no joint line tenderness.Knees are ligamentously stable to anterior drawer, posterior drawer, Emma, varus and valgus stress. Negative Neda's. Ankles and subtalar joints and feet: Full ROM without pain. Spine: Pain on forward flexion or extension of the spine. + tenderness to palpation over the spine. Good sagittal balance. Pelvis: Appears level. Neurological: 5/5 muscle strength. 2/2 DTRs. Sensory and motor function is normal in all nerve distributions. Grossly normal coordination. Steady and non- antalgic gait. Ambulating without an assistive device. Straight leg raise test intact bilaterally. Diagnostics: 05/05/2020 : No Xrays The patient???s agenda was elicited and addressed during the visit. Catarino Caraballo MD PhD Pediatric Orthopaedic Surgery Hip Preservation Surgery Adult and Pediatric Spinal Reconstruction documented in this encounter Plan of Treatment Not on filedocumented as of this encounter Visit Diagnoses Diagnosis Sciatica of right side - Primary Spondyloarthropathy Spondylosis of unspecified site without mention of myelopathy documented in this encounter Care Teams Deicer Element Winder Machine Relationship Specialty Start Date End Date Kem Henry MD PCP - General Pediatric Medicine 04/27/20 documented as of this encounter Additional Source Comments The information contained in this document represents components of the legal health record. It is not the complete legal health record.[facility]
--- OUTSIDE RECORDS SUMMARY | 2022-02-13 16:08 | XMS_ITS | Encounter Summary ---
:2000 Author Organization [facility] Address [phone] [facility] [place] [address] Care Team Providers Name Role Phone Unavailable Primary Care Provider Unavailable Encounter Details Date Type Department Care Team Description 04/07/2020 Hospital Encounter [facility] Catarino Caraballo MD, [address] [place], [place] [phone] [place] [address] [address] [place] [address] (Wo rk) [phone] (Fa x) Social History Tobacco Use Types Packs/Day Years Used Date Never Assessed Sex Assigned at Date Recorded Male 04/27/2020 12:17 PM EDT documented as of this encounter Plan of Treatment Not on filedocumented as of this encounter Procedures Procedure Name Priority Date/Time Associated Diagnosis Comme nts MRI LOWER EXTREMITY Routine 04/07/2020 12:00 AM R esults for this OUTSIDE (NO EDT procedure are i n INTERPRETATION) the results section. documented in this encounter Results MRI Lower Extremity Outside (No Interpretation) (04/07/2020 12:00 AM EDT) Specimen (Source) Anatomical Location Collection Method / Collectio n Time Received Time / Laterality Volume Narrative [facility] [place] - 05/05/2020 8:15 AM EDT This study is for PACS storage only and not for interpretation. Catarino Caraballo MD, PhD IMG OUTSIDE IMAGING W/OUT IN TERPRETATION Performing Organization Address City/State/ZIP Code Phon e Number [facility] documented in this encounter Visit Diagnoses Not on filedocumented in this encounter Additional Source Comments The information contained in this document represents components of the legal health record. It is not the complete legal health record.[facility]
--- OUTSIDE RECORDS SUMMARY | 2022-02-13 16:08 | XMS_ITS | Encounter Summary ---
:2000 Author Organization [facility] Address [phone] [facility] [place] [address] Care Team Providers Name Role Phone Kareem Henry MD Primary Care Provider Encounter Details Date Type Department Care Team Description 04/07/2020 Ancillary Orders [facility] Catarino Caraballo MD, [address] [place] [address] [address] [place] [address] (Wo rk) [phone] (Fa x) Social History Tobacco Use Types [...] Received Time / Laterality Volume Narrative [facility] IMG INTERFACES - 05/05/2020 8:15 AM EDT This study is for PACS storage only and not for interpretation. Catarino Caraballo MD, PhD IMG OUTSIDE IMAGING W/OUT IN TERPRETATION Performing Organization Address City/State/ZIP Code Phon e Number [facility] IMG INTERFACES documented in this encounter Visit Diagnoses Not on filedocumented in this encounter Care Teams Head Of Research & Insights Relationship Specialty Start Date End Date Kem Henry MD PCP - General Pediatric Medicine 04/27/20 documented as of this encounter Additional Source Comments The information contained in this document represents components of the legal health record. It is not the complete legal health record.[facility]
[2022-02-13 16:26] LABS: Source Nasal/Nares
[2022-02-13] MEDS: Albuterol/Ipratropium 3 ML UPD VIAL UPD (17:00)
[2022-02-13] MEDS: predniSONE 20 MG TAB 60 MG PO (17:01)
[2022-02-13 17:14] LABS: COVID-19 PCR Negative (Negative)
--- NOTE | 2022-02-13 17:15 | DI.VRAD_ITS ---
PROCEDURE INFORMATION: Exam: XR Chest Exam date and time: 02/13/2022 4:07 PM Age: 22 years old Clinical indication: Other: Cough, SOB, R/O acute disease TECHNIQUE: Imaging protocol: XR of the chest. Views: 1 view. Total images: 2 COMPARISON: CR XR PORTABLE CHEST AP 02/01/2022 11:29 AM FINDINGS: Lungs: Unremarkable. No consolidation. Pleural spaces: No pleural effusion. No pneumothorax. Heart/Mediastinum: Heart size is normal for technique. Bones/joints: No acute bone abnormality. IMPRESSION: No acute findings. Dictated and Authenticated by: Gini De Leon MD. Ordering:LETA Hurely MD
[2022-02-13] MEDS: Albuterol HFA 8 GM 60 PUFF INH IH (17:41)
[2022-02-13] MEDS: Inhaler, Assist Device 1 EACH MC (17:42)
[2022-02-13] MEDS: guaiFENesin/CODEINE PHOSPHATE 10 ML CUP 20 ML PO (17:42)
== END 2022-02-13 17:55 | disposition home or self-care (01) ==
PROVIDERS: Emergency Provider Physician Assistant
DX: R05.9 Cough, unspecified (principal); M45.9 Ankylosing spondylitis of unspecified sites in spine; Z79.899 Other long term (current) drug therapy; F17.290 Nicotine dependence, other tobacco product, uncomplicated; R06.02 Shortness of breath
CPT/HCPCS: 87635; 94640; 99283; 71045; J7512; J7620

== ENCOUNTER 2022-09-27 03:43 | Outpatient (CLI) | payer BC, SELFPAY ==
[2022-09-27 15:48] LABS: Abs Immature Grans 0.04 10^3/uL (0.0-0.06); Absolute Basophil Count 0.07 10^3/uL (0.0-0.2); Absolute Eosinophil Count 0.27 10^3/uL (0.0-0.7); Absolute Lymphocyte Count 2.09 10^3/uL (1.2-3.4); Absolute Monocyte Count 0.65 10^3/uL (0.1-0.8); Absolute Neutrophil Count 6.68 10^3/uL (1.2-6.7); Basophils % 0.7; Eosinophils % 2.8; HCT 43.8 % (40.0-50.0); Immature Grans % 0.4; Lymphocytes % 21.3; MCH 31.3 pg (27.0-33.0); MCHC 34.2 % (32.0-36.0); MCV 91 fL (80-95); MPV 8.8 fL (8.0-11.0); Monocytes % 6.6; Neutrophils % 68.2; Platelet Count 362 10^3/uL (130-400); RBC 4.79 10^6/uL (4.36-5.78); RDW 11.5 % (11.8-14.1); RDW-SD 38.7 fL
[2022-09-27 15:59] LABS: ESR 7 mm/hr (0-15)
[2022-09-27 16:50] LABS: ALT 44 U/L (16-63); AST 24 U/L (15-37); Alkaline Phosphatase 97 U/L (46-116); BUN 14 mg/dL (7-18); Bilirubin, Direct 0.1 mg/dL (0.0-0.2); Bilirubin, Total 0.4 mg/dL (0.2-1.0); C-Reactive Protein 0.49 mg/dL (0.0-0.3); CREATININE 1.4 mg/dL (0.70-1.30); Estimated GFR 72.43 (mL/min/1.73m2); Total Protein 8.3 g/dL (6.4-8.2)
[2022-09-27 17:20] LABS: Calculated LDL 76 mg/dL (<100); Cholesterol 190 mg/dL (<200); HDL Cholesterol 63 mg/dL (40-60); Triglyceride 255 mg/dL (<150)
== END 2022-09-27 03:44 | disposition home or self-care (01) ==
LOC: LBO 03:43
PROVIDERS: Visit Provider Internal Medicine Rheumatology
DX: M45.0 Ankylosing spondylitis of multiple sites in spine (principal); Z13.220 Encounter for screening for lipoid disorders; Z00.01 Encounter for general adult medical examination with abnormal findings
CPT/HCPCS: 36415; 80061; 80076; 84520; 85652; 82565; 85025; 86140